=== PATIENT | female | born 1965 | race African-American/Black ===

== ENCOUNTER 2019-04-28 11:50 | Emergency (ER) | payer SELFPAY ==
[~2019-04-28] VITALS: Ht 157.5 cm; Wt 70.0 kg
[2019-04-28] MEDS ORDERED: SODIUM CHLORIDE 0.9% 1,000 ML IV ONE (13:26)
[2019-04-28] MEDS ORDERED: ONDANSETRON HCL 4MG/2ML INJ IV STA (13:26)
[2019-04-28 14:26] LABS: CLARITY URINE CLEAR (CLEAR); COLOR URINE YELLOW (YELLOW); KETONES URINE 2+ (NEGATIVE); LEUKOCYTE ESTERASE URINE NEGATIVE (NEGATIVE); NITRITE URINE NEGATIVE (NEGATIVE); OCCULT BLOOD URINE NEGATIVE (NEGATIVE); PH URINE 5.5 (4.5-8.0); PROTEIN URINE NEGATIVE (NEGATIVE); SPECIFIC GRAVITY URINE 1.026 (1.005-1.030); UROBILINOGEN URINE 0.2 E.U./dL (0.2-1.0)
[2019-04-28 14:28] LABS: HEMATOCRIT. 38.9 % (36.0-48.0); HEMOGLOBIN. 13.2 g/dL (12.0-16.0); MEAN CORPUSCULAR HEMOGLOBIN 30.3 pg (28.0-32.0); MEAN CORPUSCULAR VOLUME 89.5 fL (81.0-99.0); MEAN PLATELET VOLUME 8.6 fl (7.4-10.4); PLATELET 265 x1000/uL (130-400); RED BLOOD CELL COUNT 4.34 mill/uL (4.2-5.4)
[2019-04-28 15:00] LABS: CHLORIDE 109 mEq/L (98-107)
[2019-04-28 15:45] LABS: PLATELET ESTIMATE NORMAL
[2019-04-28 18:30] VITALS: BP 129/78
== END 2019-04-28 18:51 | disposition home or self-care (01) ==
LOC: ER 11:50
DX: R10.31 Right lower quadrant pain (principal); K57.30 Diverticulosis of large intestine without perforation or abscess without bleeding; Z90.710 Acquired absence of both cervix and uterus; Z88.0 Allergy status to penicillin
CPT/HCPCS: 36415; 74177; 80053; 81003; 83690; 85025; 93005; 96361; 96374; 99284; J2405; J7030